=== PATIENT | male | born 1960 | race Caucasian/White ===

== ENCOUNTER → 2016-12-01 | Outpatient (CLI) | payer OTHER | LOC: LAB.O 08:23 | PROVIDERS: ATTEND Family Medicine | DX: R74.0 Nonspecific elevation of levels of transaminase and lactic acid dehydrogenase [LDH] (principal); E29.1 Testicular hypofunction; E83.118 Other hemochromatosis ==

== ENCOUNTER → 2016-12-22 | Outpatient (CLI) | payer OTHER ==
--- NOTE | 2016-12-23 07:56 | CT ---
EXAM DESCRIPTION: Abdomen/Pelvis w/wo Contrast CLINICAL HISTORY: Nonspecific elevation of levels of transaminase and LHD COMPARISON: None. TECHNIQUE: Pre and postcontrast multidetector CT imaging of the abdomen and pelvis was performed. Multiplanar reconstructions were generated. This exam was performed according to our departmental dose-optimization program, which includes automated exposure control, adjustment of the mA and/or kV according to patient size and/or use of iterative reconstruction technique. FINDINGS: Liver: Unremarkable. Gallbladder and biliary tree: Unremarkable. Pancreas: Unremarkable. Spleen : Unremarkable. Adrenals : Unremarkable. Kidneys and ureters : Unremarkable. Bladder: Unremarkable. Reproductive organs: Unremarkable. Bowel: There is a 3.1 x 2.9 cm air and fluid-filled diverticulum of the second to third portion of the duodenum at the level of the head of the pancreas. The appendix is unremarkable. There are moderate scattered diverticuli of the colon without associated inflammatory changes or fluid collections. Lymph nodes: No retroperitoneal, mesenteric or pelvic lymphadenopathy is present by CT size criteria. Peritoneum: Unremarkable. Vessels: Mild to moderate scattered calcific atherosclerotic disease is seen. No aortic aneurysm. Abdominal wall: Small bilateral fat-containing inguinal hernias are seen. Bones: Unremarkable. IMPRESSION: Moderate colon diverticulosis without CT evidence of diverticulitis. Moderate-sized diverticulum of the 2nd-3rd portion of the duodenum is seen at the level of the head of the pancreas. No CT evidence of biliary tract obstruction. Other findings as described in body of report. Electronically signed by: Richie Lamb MD 12/23/2016 7:56 AM CDT
== END ==
LOC: CT 08:02
PROVIDERS: ATTEND Family Medicine
DX: R74.0 Nonspecific elevation of levels of transaminase and lactic acid dehydrogenase [LDH] (principal); K57.30 Diverticulosis of large intestine without perforation or abscess without bleeding

== ENCOUNTER → 2017-12-20 | Outpatient (CLI) | payer OTHER | LOC: GMAL 12:11 | PROVIDERS: ATTEND Family Medicine | DX: Z00.01 Encounter for general adult medical examination with abnormal findings (principal) ==

== ENCOUNTER → 2017-12-27 | Outpatient (CLI) | payer OTHER ==
--- NOTE | 2017-12-27 09:55 | US ---
EXAM DESCRIPTION: Liver CLINICAL HISTORY: CIRRHOSIS COMPARISON: None available. FINDINGS: Aorta: Not visualized. IVC: Visualized portions normal. Ascites: None. Pancreas: Suboptimally visualized due to superimposed bowel gas. Liver: The liver appears diffusely hyperechoic without mass or other focal lesion. The liver is not enlarged, measuring 15 or 16 cm in length. Physiologic flow is noted in the main portal vein. No definite liver contour abnormality. Gallbladder/Common Duct: There is a small amount of sludge in the gallbladder without gallstone or gallbladder wall thickening. The common duct is not dilated, measuring 4 mm diameter at the vielka hepatis. Right Kidney: No stones, hydronephrosis, atrophy or mass. IMPRESSION: Diffusely hyperechoic appearance of the liver consistent with fatty location. No liver mass or ascites. Limited evaluation of the pancreas and abdominal aorta as indicated above, but no ascites or other abnormality related to provided history of cirrhosis. Electronically signed by: Colt Peter MD 12/27/2017 9:54 AM CDT
== END ==
LOC: US 07:51
PROVIDERS: ATTEND Family Medicine
DX: R94.5 Abnormal results of liver function studies (principal)

== ENCOUNTER → 2018-06-21 | Outpatient (CLI) | payer OTHER | LOC: GMAL 10:42 | PROVIDERS: ATTEND Family Medicine | DX: E55.9 Vitamin D deficiency, unspecified (principal) ==

== ENCOUNTER → 2018-06-22 | Outpatient (CLI) | payer OTHER ==
--- NOTE | 2018-06-22 10:39 | US ---
EXAM DESCRIPTION: Abdomen,Complete: Ultrasound. CLINICAL HISTORY: RUQ PAIN COMPARISON: None Available. TECHNIQUE: Transabdominal scannin-dimensional and Doppler modes. FINDINGS: Gallbladder: Normal size and echogenicity with no intraluminal stones or sludge. Normal wall thickness 1.5 mm. No adjacent fluid. Nontender with transducer pressure. Common bile duct: 4.8 mm caliber which is normal. Liver: Increased echogenicity. Long axis of the right lobe is 15.8 cm. Normal intrahepatic ducts. Hepatopedal flow in the portal vein which is normal caliber. Smooth capsule where seen with no ascites. Pancreas: Not well visualized. No fluid.. Abdominal aorta: Normal caliber from the proximal segment to the distal bifurcation. Minimal atherosclerotic changes. IVC: visualized; normal caliber. Spleen normal echogenicity; measurements is 13.4 x 13.1 x 4.6 cm. Echogenicity may be slightly decreased. Right kidney: 11.3 mm long axis with normal cortical thickness and echogenicity. No hydronephrosis or perinephric fluid. Normal vascularity. Left kidney: 11.3 cm long axis with normal cortical thickness and echogenicity. No hydronephrosis or perinephric fluid. Normal vascularity. IMPRESSION: 1. Spleen is mildly enlarged and possibly decrease in echoes which could represent edema. No ascites around the spleen. Normal vascularity. 2. Steatosis of the liver with normal ducts in vascularity. Smooth capsule with no ascites. Normal size. Pancreas was not well visualized due to intestinal gas. 3. Normal appearance of the gallbladder and common bile duct. 4. Bilateral kidneys are unremarkable. Electronically signed by: Jone Nnuez MD 06/22/2018 10:38 AM CDT
== END ==
LOC: US 08:17
DX: R94.5 Abnormal results of liver function studies (principal); K70.30 Alcoholic cirrhosis of liver without ascites; K57.10 Diverticulosis of small intestine without perforation or abscess without bleeding; K75.81 Nonalcoholic steatohepatitis (NASH)

== ENCOUNTER 2018-09-17 02:02 | Emergency (ER) | payer OTHER ==
--- NOTE | 2018-09-17 02:21 | ED.PDOC ---
History of Present Illness - General Chief Complaint: General Stated Complaint: insomnia, chest tightness Time Seen by Provider: 09/17/18 02:18 Source: patient, RN notes reviewed, Vital Signs reviewed Exam Limitations: no limitations Additional Information: 58 YEAR OLD WHITE MALE PRESENTS WITH INSOMNIA HAD NOT SLEPT IN THE LAST 42 HOURS HE HAD DEVELOPED CHEST DISCOMFORT LAST 2 HOURS HE DESCRIBES CONGESTION IN THE PRE CARDIAL AREA WITH TINGLING IN THE HANDS DENIES ARM PAIN NO SHORTNESS OF BREATH - History of Present Illness Timing/Duration: 1 hour Severity: mild Improving Factors: nothing Worsening Factors: nothing Associated Symptoms: denies symptoms Allergies/Adverse Reactions: Allergies Penicillins Allergy (Verified 09/17/18 02:18) Sulfa Antibiotics Allergy (Verified 09/17/18 02:18) Home Medications: Ambulatory Orders Atorvastatin Calcium [Lipitor] 20 mg PO DAILY 09/17/18 Dulaglutide [Trulicity] 1.5 mg SUBCU DAILY 09/17/18 Glimepiride 1 mg PO DAILY 09/17/18 Lisinopril [Prinivil] 10 mg PO DAILY 09/17/18 Metformin HCl 1,000 mg PO DAILY 09/17/18 Temazepam 15 mg PO PRN #15 cap 09/17/18 Review of Systems - Review of Systems Constitutional: States: no symptoms reported EENTM: States: no symptoms reported Respiratory: States: no symptoms reported Cardiology: States: see HPI Gastrointestinal/Abdominal: States: no symptoms reported Genitourinary: States: no symptoms reported Musculoskeletal: States: no symptoms reported Skin: States: no symptoms reported Neurological: States: no symptoms reported Endocrine: States: no symptoms reported Hematologic/Lymphatic: States: no symptoms reported Family Medical History - Family History Father Hx Cardiac Disease: Yes Physical Exam - Physical Exam General Appearance: Alert, Anxious Eye Exam: bilateral normal, bilateral abnormal EOM Ears, Nose, Throat: hearing grossly normal, normal ENT inspection, normal pharynx Neck: non-tender, full range of motion, supple Respiratory: chest non-tender, lungs clear, normal breath sounds, no respiratory distress, no accessory muscle use Cardiovascular/Chest: normal peripheral pulses, regular rate, rhythm, no edema, no gallop, no JVD Peripheral Pulses: radial,right: 2+, radial,left: 2+, femoral,right: 2+, femor al,left: 2+ Back Exam: normal inspection, no CVA tenderness, no vertebral tenderness Extremity: normal range of motion, non-tender, normal inspection 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, no motor/sensory deficits, alert, normal mood/affect, oriented x 3 Progress - Results/Orders Results/Orders: Laboratory Tests 09/17/18 09/17/18 02:40 02:40 WBC 8.2 RBC 5.53 Hgb 17.8 Hct 52.0 MCV 94.2 H MCH 32.1 H MCHC 34.1 RDW 13.6 Plt Count 139 MPV 8.3 Absolute Neuts (auto) 4.80 Absolute Lymphs (auto) 1.90 Absolute Monos (auto) 1.30 H Absolute Eos (auto) 0.20 Absolute Basos (auto) 0.00 Neutrophils % 58.5 Lymphocytes % 23.6 Monocytes % 15.3 H Eosinophils % 2.2 Basophils % 0.4 PT 11.0 H INR 1.10 PTT (SP) 27.0 D-Dimer, Quantitative 0.38 Sodium 134 L Potassium 4.2 Chloride 100 L Carbon Dioxide 23 Anion Gap 15.2 BUN 14 Creatinine 0.98 BUN/Creatinine Ratio 14.3 Random Glucose 137 H Serum Osmolality 270.9 L Calcium 9.3 Magnesium 1.9 Creatine Kinase 104 CK-MB (CK-2) 2.1 CK-MB (CK-2) % Not Reportable Troponin I 0.02 - EKG/XRAY/CT EKG: Sinus, no ST T wave changes Comments: EKG NSR NORMAL AXIS NO ST T CHANGES Departure - Departure Clinical Impression: Insomnia, Anxiety, Chest pain in adult, Type II diabetes mellitus Time of Disposition: 04:34 Disposition: Discharge to Home or Self Care Condition: Good Departure Forms: ED Discharge - Pt. Copy, Patient Portal Self Enrollment Diet: diabetic diet Referrals: Clement Owens III, MD [Primary Care Provider] - 1-2 Weeks Prescriptions: Temazepam 15 mg PO PRN #15 cap Home Medications: Ambulatory Orders Atorvastatin Calcium [Lipitor] 20 mg PO DAILY 09/17/18 Dulaglutide [Trulicity] 1.5 mg SUBCU DAILY 09/17/18 Glimepiride 1 mg PO DAILY 09/17/18 Lisinopril [Prinivil] 10 mg PO DAILY 09/17/18 Metformin HCl 1,000 mg PO DAILY 09/17/18 Temazepam 15 mg PO PRN #15 cap 09/17/18
[2018-09-17] MEDS ORDERED: TEMAZEPAM 15 MG CAP PO ONE (02:23)
--- NOTE | 2018-09-17 02:49 | RAD ---
EXAM DESCRIPTION: Single view of the chest CLINICAL HISTORY: chest tightness COMPARISON: None. FINDINGS: Single frontal view of the chest. The cardiomediastinal silhouette has normal size and contour. No consolidation, pneumothorax, or pleural effusion. No displaced rib fractures identified. Upper abdominal soft tissues are unremarkable. IMPRESSION: 1. No acute pulmonary process identified. Electronically signed by: Misael Quevedo 09/17/2018 2:48 AM PSYCHIATRIC ASSISTANT
[2018-09-17 04:47] VITALS: BP 120/91; TEMP 97; O2SAT 97
== END 2018-09-17 04:47 | disposition home or self-care (01) ==
LOC: ER 02:02
DX: G47.00 Insomnia, unspecified (principal); F41.9 Anxiety disorder, unspecified; R07.89 Other chest pain; E11.9 Type 2 diabetes mellitus without complications; Z79.84 Long term (current) use of oral hypoglycemic drugs; Z79.899 Other long term (current) drug therapy; Z88.0 Allergy status to penicillin; Z88.2 Allergy status to sulfonamides

== ENCOUNTER → 2020-09-04 | Outpatient (CLI) | payer OTHER | LOC: LAB.O 12:06 | PROVIDERS: ATTEND Internal Medicine Gastroenterology | DX: R94.5 Abnormal results of liver function studies (principal) ==

== ENCOUNTER → 2020-09-25 | Outpatient (CLI) | payer OTHER | LOC: LAB.O 13:33 | PROVIDERS: ATTEND Internal Medicine Gastroenterology | DX: D69.6 Thrombocytopenia, unspecified (principal); E83.110 Hereditary hemochromatosis ==